=== PATIENT | female | born 1950 | race Caucasian/White ===

== ENCOUNTER 2017-10-10 08:08 | Emergency (ER) | payer OTHER ==
[~2017-10-10] VITALS: Ht 152.4 cm; Wt 90.7 kg
[2017-10-10] MEDS ORDERED: TOPROL XL100 MG PO (08:23)
[2017-10-10] MEDS ORDERED: COZAAR 50 MG TA50 M2 PO (08:23)
[2017-10-10] MEDS ORDERED: IBUPROFEN 800800 M1 PO (08:23)
[2017-10-10] MEDS ORDERED: CELEXA 10 MG TA10 M1 PO (08:23)
[2017-10-10] MEDS ORDERED: BUSPIRONE HCL10 MG PO (08:23)
[2017-10-10] MEDS ORDERED: ZANTAC 150MG T150 MG PO (08:23)
[2017-10-10] MEDS ORDERED: HYDROCODONE-AP1 EAC6 PO (11:19)
== END 2017-10-10 13:32 | disposition home or self-care (01) ==
LOC: ER 08:08
DX: S52.571A Other intraarticular fracture of lower end of right radius, initial encounter for closed fracture (principal); I10 Essential (primary) hypertension; K21.9 Gastro-esophageal reflux disease without esophagitis; F32.9 Major depressive disorder, single episode, unspecified; J44.9 Chronic obstructive pulmonary disease, unspecified; Z88.6 Allergy status to analgesic agent; Z91.040 Latex allergy status; Z87.891 Personal history of nicotine dependence; W18.39XA Other fall on same level, initial encounter; Y93.K1 Activity, walking an animal; Y92.89 Other specified places as the place of occurrence of the external cause; Y99.8 Other external cause status